=== PATIENT | female | born 1985 | race Hispanic/Latino ===

== ENCOUNTER 2017-11-20 17:40 | Emergency (ER) | payer OTHER ==
[~2017-11-20] VITALS: Ht 160 cm; Wt 74.4 kg
[2017-11-20] MEDS ORDERED: RISPERDAL1 MG PO (17:58)
[2017-11-20] MEDS ORDERED: HYDROXYZINE HCL25 MG PO (17:58)
[2017-11-20] MEDS ORDERED: EFFEXOR XR150 MG PO (17:58)
== END 2017-11-20 22:10 | disposition home or self-care (01) ==
LOC: ED 17:40
DX: R10.31 Right lower quadrant pain (principal); F17.200 Nicotine dependence, unspecified, uncomplicated; Z88.6 Allergy status to analgesic agent; Z79.899 Other long term (current) drug therapy
CPT/HCPCS: 74177; 76830; 76856; 80053; 81001; 83690; 84703; 85025; 96361; 96374; 96375; 96376; 99284; J1170; J2405; J7030; Q9967

== ENCOUNTER 2023-03-23 14:19 | Inpatient (IN) | payer OTHER ==
[~2023-03-23] VITALS: Ht 160 cm; Wt 83.0 kg
[~2023-03-23 14:19] MED LIST: EFFEXOR XR150 MG PO; HYDROXYZINE HCL25 MG PO; RISPERDAL1 MG PO
[2023-03-24 16:18] LABS: AMNISURE ROM TEST POSITIVE
--- NOTE | 2023-03-24 16:25 | NUR ---
BOTH NARES SWABBED WITHOUT COMPLICATION
[2023-03-24 16:51] LABS: HEMATOCRIT 33.9 % (35.0-50.0); HEMOGLOBIN 10.9 g/dL (12.0-18.0); MCHC 32.3 g/dl (30-36); MCV 92.8 fl (81-99); RBC 3.65 M/ul (4.3-5.7); RDW 14.4 (10.5-15.0)
[2023-03-24 17:01] VITALS: BP 134/74
[2023-03-24 17:05] LABS: ALBUMIN 2.3 g/dL (3.4-5.0); ALBUMIN/GLOBULIN RATIO 0.53 (1.1-2.4); ANION GAP 17.2 (7-21); BILIRUBIN, TOTAL 0.4 ng/dL (0.2-1.0); BUN/CREATININE RATIO 10.95 (6.0-28.6); CALCIUM 8.9 mg/dL (8.5-10.1); CREATININE, SERUM 0.73 mg/dL (0.55-1.02); POTASSIUM 3.2 mmol/L (3.5-5.1); PROTEIN, TOTAL 6.6 g/dL (6.4-8.2)
[2023-03-24 17:28] LABS: ABO O; ANTIBODY SCREEN NEGATIVE; RH POSITIVE
[2023-03-24 17:53] LABS: AMPHETAMINES, UR POSITIVE (NEGATIVE); MARIJUANA (THC), UR POSITIVE (NEGATIVE)
[2023-03-24 17:54] LABS: BARBITURATES, UR NEGATIVE (NEGATIVE); BENZODIAZEPINES, UR NEGATIVE (NEGATIVE); BUPRENORPHINE,UR POSITIVE (NEGATIVE); COCAINE, UR NEGATIVE (NEGATIVE); MDMA, UR POSITIVE (NEGATIVE); METHADONE, UR NEGATIVE (NEGATIVE); METHAMPHETAMINE, UR POSITIVE (NEGATIVE); OPIATES, UR NEGATIVE (NEGATIVE); OXYCODONE, UR NEGATIVE (NEGATIVE); PHENCYCLIDINE, UR NEGATIVE (NEGATIVE); TRICYCLIC ANTIDEPRESSANT, UR NEGATIVE (NEGATIVE)
--- NOTE | 2023-03-24 18:52 | NUR ---
03/24/231851 Susan Obrien 184: PT BACK TO [facility] FROM [facility] OR SUPINE. PT HAS GRADER TENDER AT BEDSIDE AND FATHER HOLDING . PT STATES FEELING SOME NAUSEA AND THAT SHE IS "CHELO DIZZY." PT ENCOURAGED TO CLOSE EYES AND TAKE DEEP BREATHS. Solis REYNOLDS CRNA GIVEN 8 ZOFRAN AND 8 DECRADON IV.
[2023-03-24 19:34] VITALS: BP 134/93
[2023-03-25 05:46] LABS: HEMATOCRIT 30.4 % (35.0-50.0); HEMOGLOBIN 9.9 g/dL (12.0-18.0); MCH 30.1 (27-36); MCHC 32.7 g/dl (30-36); RBC 3.3 M/ul (4.3-5.7); RDW 14.5 (10.5-15.0)
[2023-03-25 06:03] LABS: ALBUMIN 1.8 g/dL (3.4-5.0); ALBUMIN/GLOBULIN RATIO 0.49 (1.1-2.4); ANION GAP 12.8 (7-21); BILIRUBIN, TOTAL 0.3 ng/dL (0.2-1.0); BUN/CREATININE RATIO 8.06 (6.0-28.6); CALCIUM 8.4 mg/dL (8.5-10.1); CREATININE, SERUM 0.62 mg/dL (0.55-1.02); POTASSIUM 3.8 mmol/L (3.5-5.1); PROTEIN, TOTAL 5.5 g/dL (6.4-8.2)
--- NOTE | 2023-03-25 10:13 | PR ---
[facility] [address], [place] [address] Signed PP Progress Notes Datetime Report Generated by CARLO: 03/25/2023 10:13 SUBJECTIVE: [id number] Pain: Abnormal Nausea/Vomiting: Denies Flatus: Yes Bowel Movement: No Vital Signs: [id number] Vital Signs: Reviewed; Within Normal Limits Cardiovascular: Normal Respiratory: Normal Abdomen/Uterus: Normal Lochia: Normal Vulva/Perineum: Not Done Breasts: Not Done CVA Tenderness: Normal Extremities: Normal Incision: Normal Progress: Not Applicable Exam Comments: Fundus firm U2. Incision well healing w/ zara in place. No hematoma, seroma, erythema, or edema. IMPRESSION/PLAN/PROCEDURES: [id number] Impression: Normal Progression; Pain Plan: Continue Present Management Other Plans: Multimodal pain management Progress Notes: Pt seen and examined. Reports suboptimal pain control despite increasing narcotics overnight, spinal, TAP block, ice, and tylenol. Pt unable to tolerate NSAIDs to do hx of severe allergy. Requesting IV narcotics "to help break my pain, thats whats worked in the past." Ambulating w/ good urine output. No fevers/chills. Not due to contraindications. Lochia minimal. Plan: Pt reports dilaudid does not work well for her and that morphine has worked best in the past. Will titrate w/ morphine, but discussed would try to limit IV narcotics to smallest effective dose over shortest amount of time. Increase buprenorphine to 12mg SL given this AM. Will discuss possible repeat TAP block or other regional anesthetic options w/ anesthesia. Signing Physician: Omar Durant DO Copies: *Electronically Signed* 03/25/231012 OMAR DURANT) DO PATIENT NAME: MAURO ELLIS PROGRESS NOTE DATE OF : 83 PHYSICIAN: OMAR DURANT (JD) DO RPT #: [id number] REPORT IS CONFIDENTIAL AND NOT TO BE RELEASED WITHOUT AUTHORIZATION [place] [id number] [place], [place] [address] Signed ~ *Electronically Signed* 03/25/23 101 OMAR DURANT) DO PATIENT NAME: MAURO ELLIS PROGRESS NOTE DATE OF : 83 PHYSICIAN: OMAR DURANT (JD) DO RPT #: [id number] REPORT IS CONFIDENTIAL AND NOT TO BE RELEASED WITHOUT AUTHORIZATION
--- NOTE | 2023-03-25 10:29 | NUR ---
NURSING CARE IN PROGRESS. DID NOT ENTER ROOM. SAID SILENT PRAYER FOR MOTHER AND BABY.
--- NOTE | 2023-03-25 13:24 | PR ---
[facility] [address] [place], [place] [address] Signed PP Progress Notes Datetime Report Generated by CPN: 03/25/2023 13:24 SUBJECTIVE: [id number] Pain: Abnormal Nausea/Vomiting: Denies Flatus: Yes Bowel Movement: No Vital Signs: [id number] Vital Signs: Reviewed; Within Normal Limits Cardiovascular: Normal Respiratory: Normal Abdomen/Uterus: Normal Lochia: Normal Vulva/Perineum: Not Done Breasts: Not Done CVA Tenderness: Normal Extremities: Normal Incision: Normal Progress: Not Applicable Exam Comments: Fundus firm U2. Incision well healing w/ zara in place. No hematoma, seroma, erythema, or edema. IMPRESSION/PLAN/PROCEDURES: [id number] Impression: Pain Plan: Continue Present Management Other Plans: Multimodal pain management Progress Notes: Pt w/ continued poor pain control. Morphine 4mg IV did not improve pain. Will start fentanyl TIP LENGTH CHECKER. Pt reports intolerance to Gabapentin. Will stop all oral acetaminophen and transition to IV tylenol. Anesthesia consult requested for evaluation of TAP or other regional anesthetic or other therapies. Pharmacy states fentanyl TIP LENGTH CHECKER will take _ 2 hrs to prepare. Will give fentanyl 50mcg now. Will also increase buprenorphine to 12mcg SL BID. Signing Physician: Omar Durant DO Copies: ~ *Electronically Signed* 03/25/23 3853 OMAR DURANT (MARBIN) DO PATIENT NAME: MAURO ELLIS PROGRESS NOTE DATE OF : 83 PHYSICIAN: OMAR DURANT (JD) DO RPT #: [id number] REPORT IS CONFIDENTIAL AND NOT TO BE RELEASED WITHOUT AUTHORIZATION
--- NOTE | 2023-03-26 08:47 | PR ---
[facility] [address], [place] [address] Signed PP Progress Notes Datetime Report Generated by CARLO: 03/26/2023 08:46 SUBJECTIVE: [id number] Pain: Within Normal Limits Nausea/Vomiting: Denies Flatus: Yes Bowel Movement: Yes Vital Signs: [id number] Vital Signs: Reviewed; Within Normal Limits Notable Details: Pain much improved EXAM: Met Cardiovascular: Normal Respiratory: Normal Abdomen/Uterus: Normal Lochia: Normal Vulva/Perineum: Not Done Breasts: Not Done CVA Tenderness: Normal Extremities: Normal Incision: Normal Progress: Not Applicable Exam Comments: Fundus firm U-2 IMPRESSION/PLAN/PROCEDURES: [id number] Impression: Normal Progression Plan: Discharge Other Plans: Multimodal pain management Progress Notes: Pt seen and examined. Doing much better. 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 No fevers/chills. Bleeding scant. Not due to contraindications. Ambulating, voiding, and tolerating full diet. Pt considered leaving AMA several times yesterday to be with her who was tranferred to [place]. 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 She declines and reports that she would like to attempt substance abuse treatment in the future, "but I'm just being honest, I am going to go home and use today." She reports she has narcan "with me at all times no matter what." She understands the risks of overdose and continued addiction. Her partner is supportive of her decision. Pt agreeable to discharge w/ buprenorphine but is requesting a smaller dose than she needed here. She agrees to *Electronically Signed* 03/26/23 0846 OMAR DURANT) DO PATIENT NAME: MAURO ELLIS PROGRESS NOTE DATE OF : 83 PHYSICIAN: OMAR DURANT DO (JD) RPT #: [id number] REPORT IS CONFIDENTIAL AND NOT TO BE RELEASED WITHOUT AUTHORIZATION [facility] [address] [place] [address] Signed buprenorphine 6mg SL daily w/ follow up w/ Dr. Tran scheduled next Wednesday. Discussed staple removal; can be coordinated in [place] or I would be happy to take them out early next week when she returns to [facility]. Pt understands and agrees. Again, pt w/ NSAID allergy and intolerance to gabapentin. She requests only buprenorphine Rx. Discussed multimodal pain therapy including cold therapy, tylenol, and buprenorphine. Discussed Hep C treatment . F/U w/ Dr. Tran in 5 days and with me in 2 wks; sooner if needed. Signing Physician: Omar Durant DO Copies: ~ *Electronically Signed* 03/26/23 0846 OMAR DURANT) DO PATIENT NAME: MAURO ELLIS PROGRESS NOTE DATE OF : 83 PHYSICIAN: OMAR DURANT (JD) DO RPT #: [id number] REPORT IS CONFIDENTIAL AND NOT TO BE RELEASED WITHOUT AUTHORIZATION
[2023-03-27 20:08] LABS: HIV-1 QNT BY NAAT (COPIES/ML) Not Detected cpy/mL (()); HIV-1 QNT BY NAAT INTERP Not Detected (Not Detected); HIV-1 QNT NAAT (LOG COPIES/ML) Not Detected (())
== END 2023-03-26 09:25 | disposition home or self-care (01) | DRG 787 ==
LOC: FBC 03-24 14:31
PROVIDERS: ADMIT Obstetrics & Gynecology; ATTEND Obstetrics & Gynecology
PROC: 10D00Z1 Extraction of Products of Conception, Low, Open Approach (ICD-10-PCS; principal; 2023-03-24 15:00)
DX: O34.211 Maternal care for low transverse scar from previous cesarean delivery (principal); O98.42 Viral hepatitis complicating childbirth; O99.344 Other mental disorders complicating childbirth; Z20.822 Contact with and (suspected) exposure to COVID-19; B19.20 Unspecified viral hepatitis C without hepatic coma; O09.513 Supervision of elderly primigravida, third trimester; O99.334 Smoking (tobacco) complicating childbirth; F17.210 Nicotine dependence, cigarettes, uncomplicated; F15.10 Other stimulant abuse, uncomplicated; F11.10 Opioid abuse, uncomplicated; Z37.0 Single live birth; Z67.40 Type O blood, Rh positive; Z3A.39 39 weeks gestation of pregnancy; Z90.89 Acquired absence of other organs; Z88.6 Allergy status to analgesic agent; Z79.899 Other long term (current) drug therapy
CPT/HCPCS: 01961; 36415; 76942; 80053; 84112; 85027; 85060; 86850; 86900; 86901; 87536; A9270; C9803; J0690; J1100; J1650; J2250; J2270; J2274; J2371; J2405; J2590; J2795; J3010; J7121; Q0177; U0002